=== PATIENT | male | born 1965 | race Caucasian/White ===

== ENCOUNTER 2016-04-05 12:45 | Outpatient (CLI) ==
[2013-04-17 12:47] VITALS: BMI 28.0
[2016-04-05 13:13] LABS: BASOPHILS % (AUTO) 0.9 % (0.0-3.0); EOSINOPHILS # (AUTO) 0.1 K/ul (0.0-0.7); EOSINOPHILS % (AUTO) 3.1 % (0.0-7.0); HEMATOCRIT 37.9 % (42.0-52.0); HEMOGLOBIN 12.7 g/dl (14.0-18.0); IMMATURE GRANULOCYTE % (AUTO) 0.3 % (0.0-5.0); LYMPHOCYTES # (AUTO) 0.9 K/uL (0.60-3.4); LYMPHOCYTES % (AUTO) 27.3 (10.0-50.0); MEAN CORPUSCULAR HEMOGLOBIN 31.9 pg (27.0-31.0); MEAN CORPUSCULAR HGB CONC 33.5 (31.8-35.4); MEAN CORPUSCULAR VOLUME 95.2 fl (80.0-94.0); MONOCYTES # (AUTO) 0.5 K/uL (0.4-2.0); NEUTROPHILS # (AUTO) 1.7 K/ul (2.0-6.9); NEUTROPHILS % (AUTO) 52.4; PLATELET COUNT 116 10^3/uL (140-440); RED BLOOD COUNT 3.98 10^6/ul (4.70-6.10); WHITE BLOOD COUNT 3.19 K/ul (4.2-10.2)
[2016-04-05 13:35] LABS: PROTHROMBIN TIME 12.3 SEC (9.3-11.0)
[2016-04-05 13:44] LABS: ALBUMIN 2.7 g/dL (3.4-5.0); ALBUMIN/GLOBULIN RATIO 0.6; ANION GAP 9.6; BILIRUBIN,TOTAL 1.56 mg/dL (0.00-1.20); BUN/CREATININE RATIO 12.98; CALCIUM 8.5 mg/dL (8.2-10.2); CHOL/HDL RATIO 3.1 (4.5-6.4); CREATININE 0.77 mg/dL (0.60-1.10); POTASSIUM 3.6 mmol/L (3.5-5.1); TOTAL PROTEIN 7.2 g/dL (6.4-8.2)
--- NOTE | 2016-04-05 14:09 | CT ---
EXAM: CT abdomen pelvis without contrast HISTORY: Cirrhosis. Patient with previous cholecystectomy and appendectomy COMPARISON: CT abdomen pelvis 01/01/2014 TECHNIQUE: Serial axial images of the abdomen pelvis were performed from the lung bases through the inferior pelvis without contrast. These were viewed in multiple planes. FINDINGS: The lung bases are clear. There are esophageal varices noted and varices adjacent to the superior gastric body. Evaluation is limited due to lack of contrast. The liver demonstrates a lobular cortical appearance and otherwise not significantly changed. Caudate is enlarged which is unchanged from prior. No foc al hepatic lesion is identified. Spleen size is unchanged. Portal vein is poorly visualized due to lack of contrast. There are varices anterior to the liver. The adrenal glands and kidneys are unremarkable. The pancreas is unremarkable. The stomach is norm al in appearance. Small bowel in the abdomen and pelvis is normal. The colon is unremarkable. There is thickening an d hazy stranding surrounding the urinary bladder which is partially distended. The prostate has bee n treated with metallic seeds. There is no free air or free fluid. The osseous structures are unch anged. IMPRESSION: 1. No significant change in cirrhotic appearance of the liver with esophageal intra-abdominal varic es. 2. Mild thickening and hazy inflammatory stranding surrounding the urinary bladder may represent mi ld inflammation versus infection.
== END 2016-04-05 12:46 | disposition home or self-care (01) ==
LOC: RAD 12:45
PROVIDERS: ATTEND Nurse Practitioner Family
DX: B18.2 Chronic viral hepatitis C (principal)
CPT/HCPCS: 36415; 80053; 80061; 82140; 82150; 83690; 85025; 85610

== ENCOUNTER 2016-04-06 12:43 | Outpatient (CLI) ==
[2013-04-17 12:47] VITALS: BMI 28.0
--- NOTE | 2016-04-06 14:07 | CT ---
EXAM: Noncontrast CT examination of the chest with axial, coronal, and sagittal reformatted images. Comparison: Chest radiographs performed on 04/15/2013. Reason for study: Chronic viral hepatitis C. FINDINGS: No pneumothorax, pleural effusion, or focal consolidation. The lungs are clear without n odularity, septal thickening, or interstitial change. The heart is not enlarged. The partially imaged liver is small with irregular lobular contours and a prominent caudate lobe. T he gallbladder has been removed. Evaluation is somewhat limited secondary to lack of intravenous co ntrast, no intrahepatic lesions are seen. The spleen, adrenal glands, and pancreas are unremarkable . There is extensive vascular collateralization seen throughout the abdominal mesentery. The parti ally imaged bowel and renal collecting system are unremarkable. There is mild degenerative disease of the thoracic spine. IMPRESSION: 1. No abnormal thoracic findings. 2. Irregularly contoured lobular liver with a prominent caudate lobe consistent with longstanding l iver disease.
== END 2016-04-06 12:44 | disposition home or self-care (01) ==
LOC: RAD 12:43
PROVIDERS: ATTEND Nurse Practitioner Family
DX: B18.2 Chronic viral hepatitis C (principal)

== ENCOUNTER 2016-04-07 09:12 | Outpatient (CLI) ==
[2013-04-17 12:47] VITALS: BMI 28.0
--- NOTE | 2016-04-07 10:14 | US ---
EXAM: Bilateral lower extremity venous doppler. HISTORY: Bilateral leg pain and swelling. COMPARISON: None available. TECHNIQUE: Multiple grayscale and color doppler images were obtained. FINDINGS: There is normal flow, compressibility and augmentation of flow within the right and left common femoral, greater saphenous, profunda, femoral, popliteal, posterior tibial, anterior tibial a nd peroneal veins. IMPRESSION: No evidence for right or left lower extremity deep vein thrombosis at the levels examined.
== END 2016-04-07 09:13 | disposition home or self-care (01) ==
LOC: RAD 09:12
PROVIDERS: ATTEND Nurse Practitioner Family
DX: M79.605 Pain in left leg (principal); M79.604 Pain in right leg; B18.2 Chronic viral hepatitis C

== ENCOUNTER 2016-04-08 08:07 | Outpatient (CLI) ==
[2013-04-17 12:47] VITALS: BMI 28.0
--- NOTE | 2016-04-08 08:55 | US ---
EXAM: Ultrasound abdomen limited. HISTORY: Cirrhosis. COMPARISON: CT 04/05/2016. TECHNIQUE: Abdominal, real time with image documentation: limited (eg, single organ, quadrant, fol low-up) FINDINGS: The liver is small, demonstrating a nodular surface contour with a coarsened echotexture pattern. Gallbladder is absent. Common duct not clearly seen. Portal vein appears hepatopedal exte rnal to the liver. Intrahepatic portal vein not imaged. Pancreas is not identified due to bowel gas . IMPRESSION: Cirrhosis.
== END 2016-04-08 08:08 | disposition home or self-care (01) ==
LOC: RAD 08:07
PROVIDERS: ATTEND Nurse Practitioner Family
DX: K74.60 Unspecified cirrhosis of liver (principal)

== ENCOUNTER 2016-06-21 09:52 | Day surgery (SDC) ==
[2013-04-17 12:47] VITALS: BMI 28.0
[2016-06-21] MEDS ORDERED: ALBUTEROL 0.083% NEB NEB STA (11:29)
[2016-06-21] MEDS ORDERED: VERSED ONE (12:53)
[2016-06-21] MEDS ORDERED: DIPRIVAN 20 ML VIAL IVP ONE (12:53)
[2016-06-21] MEDS ORDERED: LIDOCAINE HCL 2% LUER-JET ONE (12:53)
[2016-06-21 14:21] VITALS: BP 117/66; TEMP 98.7
--- NOTE | 2016-06-22 13:56 | OP ---
INDICATIONS FOR PROCEDURE: 51-year-old gentleman presents for endoscopy evaluation. He had a CT scan showing probable esophageal varices. He tells me he had varices banded two to three years ago in [facility]. It was not for bleeding. He denies a history of esophageal bleeding. He is scheduled for endoscopy investigation. MEDICATIONS: SEE ANESTHESIA NOTES. PROCEDURE: ENDOSCOPY. REPORT: The risks, benefits, alternatives and limitations were discussed in detail with the patient. Informed consent was obtained. After adequate sedation was achieved, the video endoscope was introduced in the posterior pharynx and esophagus under direct vision. I easily advanced down to the second portion of the duodenum. I then slowly withdrew. The duodenal mucosa appeared unremarkable as did the duodenal bulb. There is inflammatory changes in the antrum suggestive of possible portal hypertensive gastropathy. The body was unremarkable. The cardia and fundus were unremarkable. There was no evidence of gastric varices. I withdrew the scope back in the esophagus. There are esophageal varices in the lower two-thirds of the esophagus. These initially appeared to be 2+ but I did finally get them to fully flatten out with full insufflation of the esophagus. There is also mild inflammatory changes right at the GE junction with one small break in the mucosa with erythema consistent with 1+ reflux esophagitis. No other abnormalities noted. The patient tolerated the procedure well with stable vital signs and pulse oximetry throughout. IMPRESSION: 1. MILD ANTRITIS SUGGESTIVE OF PORTAL HYPERTENSIVE GASTROPATHY 2. MILD 1+ REFLUX ESOPHAGITIS 3. ZERO TO 1+ ESOPHAGEAL VARICES RECOMMENDATIONS: 1. He is still drinking alcohol and I told him the importance that he must abstain. I have discussed this with the patient and his and that his life expectancy is significantly shortened if he continues to drink alcohol. 2. Will plan to treat the varices with prophylactic Nadolol 40 mg q.a.m. 3. Plan Omeprazole for treatment of esophagitis and help prevent variceal bleeding with reflux esophagitis. 4. Office visit as scheduled for followup in July. At that time, we can discuss treatment of his hepatitis C, reassess how he is doing with his alcohol and also discuss the option of band ligation of the varices vs medical prophylaxis. 5. He will need to continue followup with his primary care providers for assistance in abstaining from alcohol as well as care for his other underlying medical illnesses. CC: DR. STARLA LICEA
== END 2016-06-21 14:05 | disposition home or self-care (01) ==
LOC: SURG 09:52
PROVIDERS: ATTEND Internal Medicine Gastroenterology
DX: R93.3 Abnormal findings on diagnostic imaging of other parts of digestive tract (principal); K29.60 Other gastritis without bleeding; K21.0 Gastro-esophageal reflux disease with esophagitis; I85.00 Esophageal varices without bleeding; Z72.89 Other problems related to lifestyle
CPT/HCPCS: 94640

== ENCOUNTER 2016-06-28 10:22 | Outpatient (CLI) ==
[2013-04-17 12:47] VITALS: BMI 28.0
[2016-06-28 10:35] LABS: BASOPHILS % (AUTO) 0.3 % (0.0-3.0); EOSINOPHILS # (AUTO) 0.2 K/ul (0.0-0.7); EOSINOPHILS % (AUTO) 4.1 % (0.0-7.0); HEMATOCRIT 36.3 % (42.0-52.0); HEMOGLOBIN 12.2 g/dl (14.0-18.0); IMMATURE GRANULOCYTE % (AUTO) 0.3 % (0.0-5.0); LYMPHOCYTES # (AUTO) 0.8 K/uL (0.60-3.4); LYMPHOCYTES % (AUTO) 22.3 (10.0-50.0); MEAN CORPUSCULAR HEMOGLOBIN 31.4 pg (27.0-31.0); MEAN CORPUSCULAR HGB CONC 33.6 (31.8-35.4); MEAN CORPUSCULAR VOLUME 93.3 fl (80.0-94.0); MONOCYTES # (AUTO) 0.7 K/uL (0.4-2.0); MONOCYTES % (AUTO) 20.2 (0-10); NEUTROPHILS # (AUTO) 1.9 K/ul (2.0-6.9); NEUTROPHILS % (AUTO) 52.8; PLATELET COUNT 109 10^3/uL (140-440); RED BLOOD COUNT 3.89 10^6/ul (4.70-6.10); WHITE BLOOD COUNT 3.67 K/ul (4.2-10.2)
[2016-06-28 10:50] LABS: ALBUMIN 2.8 g/dL (3.4-5.0); ALBUMIN/GLOBULIN RATIO 0.67; ANION GAP 11.4; BILIRUBIN,TOTAL 1.37 mg/dL (0.00-1.20); BUN/CREATININE RATIO 18.57; CALCIUM 8.5 mg/dL (8.2-10.2); CHOL/HDL RATIO 2.2 (4.5-6.4); CREATININE 0.7 mg/dL (0.60-1.10); POTASSIUM 4.4 mmol/L (3.5-5.1)
== END 2016-06-28 10:23 | disposition home or self-care (01) ==
LOC: LAB 10:22
PROVIDERS: ATTEND Nurse Practitioner Family
DX: K74.60 Unspecified cirrhosis of liver (principal); B18.2 Chronic viral hepatitis C; M79.604 Pain in right leg
CPT/HCPCS: 36415; 80053; 80061; 82140; 85025

== ENCOUNTER 2016-09-06 10:25 | Outpatient (CLI) ==
[2013-04-17 12:47] VITALS: BMI 28.0
--- NOTE | 2016-09-06 10:44 | DI ---
EXAM: Radiographs, right knee HISTORY: Right knee pain. COMPARISON: None available. TECHNIQUE: Four views. FINDINGS: Bone mineralization is decreased. There is no fracture or dislocation. Mild medial comp artment joint space narrowing and marginal osteophyte formation noted. No focal soft tissue abnorma lity is seen. IMPRESSION: Mild medial compartment osteoarthritis.
--- NOTE | 2016-09-06 10:44 | DI ---
EXAM: Four views of the left knee HISTORY: Left knee pain. COMPARISON: Right knee x-rays 09/06/2016 same day FINDINGS: There is mild medial compartmental narrowing. The lateral compartment is normal. There i s no lytic or blastic lesion. The patella is normal in appearance and position. The soft tissues a re unremarkable. IMPRESSION: Mild medial compartmental narrowing with no acute osseous abnormality.
== END 2016-09-06 10:26 | disposition home or self-care (01) ==
LOC: RAD 10:25
PROVIDERS: ATTEND Nurse Practitioner Family
DX: M25.562 Pain in left knee (principal); M25.561 Pain in right knee

== ENCOUNTER 2016-09-08 15:35 | Emergency (ER) ==
[2016-09-08 15:45] VITALS: BP 127/86; TEMP 97.9; BMI 31.6
[2016-09-08] MEDS ORDERED: ZOFRAN 4 MG/2 ML IVP STA (16:02)
[2016-09-08] MEDS ORDERED: MORPHINE 4 MG/ML SYRINGE IVP STA (16:02)
[2016-09-08 16:08] LABS: HEMATOCRIT 36.8 % (42.0-52.0); HEMOGLOBIN 12.8 g/dl (14.0-18.0); MEAN CORPUSCULAR HEMOGLOBIN 32.1 pg (27.0-31.0); MEAN CORPUSCULAR HGB CONC 34.8 (31.8-35.4); MEAN CORPUSCULAR VOLUME 92.2 fl (80.0-94.0); PLATELET COUNT 118 10^3/uL (140-440); RED BLOOD COUNT 3.99 10^6/ul (4.70-6.10); WHITE BLOOD COUNT 5.06 K/ul (4.2-10.2)
[2016-09-08 16:21] LABS: ANISOCYTOSIS NOT PRESENT (NOT PRESENT)
[2016-09-08 16:32] LABS: ALANINE AMINOTRANSFERASE 33 U/L (12-78); ALBUMIN 2.6 g/dL (3.4-5.0); ALKALINE PHOSPHATASE 120 U/L (50-136); ANION GAP 9.1; ASPARTATE AMINO TRANSFERASE 55 U/L (15-37); BILIRUBIN,TOTAL 1.63 mg/dL (0.00-1.20); BLOOD UREA NITROGEN 10 mg/dL (7-18); BUN/CREATININE RATIO 12.82; CALCIUM 8.6 mg/dL (8.2-10.2); CARBON DIOXIDE 29 mmol/L (21-32); CHLORIDE 105 mmol/L (98-107); CREATINE KINASE 102 U/L; CREATININE 0.78 mg/dL (0.60-1.10); GLUCOSE 103 mg/dL (70-100); POTASSIUM 4.1 mmol/L (3.5-5.1); SODIUM 139 mmol/L (136-145); TOTAL PROTEIN 6.9 g/dL (6.4-8.2)
--- NOTE | 2016-09-08 17:23 | CT ---
Exam: CT thorax without contrast. Clinical indication: Trauma. TECHNIQUE: Axial unenhanced CT images of the thorax were obtained followed by coronal and sagittal reformats. 3-D reconstruction of the thoracic bony structures was performed. Comparison is made to the prior CT dated 04/06/2016. Findings: The visualized portions of the clavicles and scapula are intact. The thoracic vertebral bodies are intact. The ribs are intact. The pulmonary parenchyma is clear and there is no pleural abnormality. There is an enlarged AP window lymph node measuring 1.2 cm in short axis dimension, but this is unch anged from March 2016 and therefore likely reactive. There are no other enlarged axillary, hilar or mediastinal lymph nodes, by size criteria. The mediastinal structures are unremarkable. The liver surface contour has a nodular appearance consistent with cirrhosis. There are extensive para esophageal varices. The remainder of the visualized portions of the upper abdomen are unremarkable. Impression: 1. No evidence of acute thoracic injury. 2. Underlying hepatic cirrhosis. 3. Extensive esophageal varices. 4. Single enlarged AP window lymph node, but this is unchanged from the March 2016 CT and therefo re most likely reactive..
--- NOTE | 2016-09-08 18:05 | ED.PDOC ---
General ED Provider: Dr. XIOMARA BETANCUR Chief Complaint: Chest Wall Injury/Pain Stated Complaint: fall ant chest wall brusing Time Seen by Physician: 15:39 Mode of Arrival: Walk-In Information Source: Patient, Family Exam Limitations: No limitations [facility] Care Provider: [facility] Nursing and Triage Documentation Reviewed and Agree: Yes Trauma/Injury Complaint Exam - Trauma Complaint/Exam Location of Pain or Injury: Reports: Chest. Denies: Head, Scalp, Face, Neck, RUE, LUE, Abdomen, Back, RLE, LLE Mechanism of Injury: Reports: Fall (brief syncope a few seconds 1 dayago) Onset/Duration: 1 day ago Symptoms Are: Still present Initial Severity: Mild Current Severity: Mild Character: Reports: Aching Aggravating: Reports: None Alleviating: Reports: None Associated Signs and Symptoms: Reports: Bruising (ant chest wall) Related History: Reports: Alcohol abuse. Denies: Similar episode Penetrating Injury Risk Factors: Reports: None Nexus Low Risk Criteria: No post-midline CS tender, No evidence of intoxicat., No Altered LOC, No focal neuro deficit, No distracting injuries Immobilization Removed Post Exam: No Glascow Coma Scale (see protocol): 15 Trauma Findings: Absent: [place] eyes, Hemotympanum, Dental tenderness, Dental injury, Dental malocclusion, SubQ Air, Crepitus, Airway obstructed, Trachea displaced, Labored respirations, Weak pulses, Abdominal distention, Pelvic tenderness, Pelvic instability, Perineal blood, Meatal blood, Abnormal rectal tone Review of Systems - Review Of Systems Constitutional: Reports: No symptoms Eyes: Reports: No symptoms Ears, Nose, Mouth, Throat: Reports: No symptoms Respiratory: Reports: No symptoms Cardiac: Reports: Chest pain (brused see photos) GI: Reports: No symptoms : Reports: No symptoms Musculoskeletal: Reports: No symptoms Skin: Reports: No symptoms Neurological: Reports: No symptoms Endocrine: Reports: No symptoms Hematologic/Lymphatic: Reports: No symptoms All Other Systems: Reviewed and Negative Past Medical History - Past Medical History Previously Healthy: No Endocrine: Reports: None Cardiovascular: Reports: None Respiratory: Reports: None Hematological: Reports: Anemia Gastrointestinal: Reports: Other (cirrhosis, hep c varices ) Genitourinary: Reports: None Neuro/Psych: Reports: None Musculoskeletal: Reports: None Cancer: Reports: None - Surgical History General Surgical History: Reports: None - Family History Family History: Reports: None - Social History Smoking Status: Current every day smoker Hx Substance Use: No Alcohol Screening: Occasionally Physical Exam - Physical Exam Appearance: Well-appearing Eyes: SOHAN, EOMI, Conjunctiva clear ENT: Ears normal, Nose normal, Oropharynx normal Respiratory: Airway patent, Breath sounds clear, Breath sounds equal, Respirations nonlabored Cardiovascular: RRR, Pulses normal, No rub, No murmur GI/: Soft, Nontender, No masses, Bowel sounds normal, No Organomegaly Musculoskeletal: Normal strength (chest wall brused see photos) Skin: Warm, Dry, Normal color Neurological: Sensation intact, Motor intact, Reflexes intact, Cranial nerves intact, Alert, Oriented Psychiatric: Affect appropriate, Mood appropriate Interpretation - Radiology Interpretation Radiology Interpretation By: Radiologist Radiology Results: No acute changes Critical Care Note - Critical Care Note Total Time (mins): 0 Course - Course Hematology/Chemistry: 09/08/16 16:04 09/08/16 16:04 Orders, Labs, Meds: Lab Review 09/08/16 16:04 WBC 5.06 RBC 3.99 L Hgb 12.8 L Hct 36.8 L MCV 92.2 MCH 32.1 H MCHC 34.8 RDW Coeff of Sera 14.6 Plt Count 118 L Neutrophils % (Manual) 61.0 Lymphocytes % (Manual) 14.0 Monocytes % (Manual) 15.0 H Eosinophils % (Manual) 2.0 Reactive Lymphocytes 8.0 H Sodium 139 Potassium 4.1 Chloride 105 Carbon Dioxide 29 Anion Gap 9.1 BUN 10 Creatinine 0.78 Estimated GFR (MDRD) 104.00 BUN/Creatinine Ratio 12.82 Glucose 103 H Calcium 8.6 Total Bilirubin 1.63 H AST 55 H ALT 33 Alkaline Phosphatase 120 Total Creatine Kinase 102 Troponin I < 0.0100 Total Protein 6.9 Albumin 2.6 L Globulin 4.3 Albumin/Globulin Ratio 0.60 Orders Category Date Time Status EKG-(ED ONLY) Stat CARDIO 09/08/16 15:58 Completed NPO REMINDER: IMAGING ONCE CARE 09/08/16 16:00 Completed ED IV/MEDIPORT/POWERPORT .ONCE EMERGENCY 09/08/16 16:24 Active CBC W/ AUTO DIFF Stat LAB 09/08/16 16:04 Completed COMPREHENSIVE METABOLIC PANEL Stat LAB 09/08/16 16:04 Completed CREATINE KINASE Stat LAB 09/08/16 16:04 Completed MANUAL DIFFERENTIAL Stat LAB 09/08/16 16:04 Completed TROPONIN I Stat LAB 09/08/16 16:04 Completed 0.9 % Sodium Chloride [Saline Flush] MEDS 09/08/16 16:24 Active 1 syr IVF PRN PRN Morphine Sulfate [Morphine 4 mg/ml Syringe] MEDS 09/08/16 16:02 Discontinued 4 mg IVP ONCE STA Ondansetron HCl/Pf [Zofran 4 mg/2 ml] MEDS 09/08/16 16:02 Discontinued 4 mg IVP ONCE STA CT CHEST W/CONTRAST Stat RADS 09/08/16 16:01 Completed Medications Generic Name Dose Route Start Last Admin Trade Name Freq PRN Reason Stop Dose Admin Sodium Chloride 1 syr 09/08/16 16:24 09/08/16 16:28 Saline Flush IVF 1 syr PRN PRN Administration To flush IV Discontinued Medications Generic Name Dose Route Start Last Admin Trade Name Freq PRN Reason Stop Dose Admin Morphine Sulfate 4 mg 09/08/16 16:02 09/08/16 16:27 Morphine 4 Mg/Ml Syringe IVP 09/08/16 16:03 4 mg ONCE STA Administration Ondansetron HCl 4 mg 09/08/16 16:02 09/08/16 16:27 Zofran 4 Mg/2 Ml IVP 09/08/16 16:03 4 mg ONCE STA Administration Vital Signs: Temp Pulse Resp BP Pulse Ox 09/08/16 15:36 97.9 F 102 H 16 127/86 95 Departure - Departure Time of Disposition: 18:07 Disposition: HOME SELF-CARE Discharge Problem: Chest wall pain Contusion, chest wall Qualifiers: Encounter type: initial encounter Anemia Qualifiers: Anemia type: unspecified type Qualifier Code: (D64.9) Anemia, unspecified Instructions: Contusion in Adults (ED), Anemia (ED), Thrombocytopenia (ED) Condition: Good Pt referred to PMD for follow-up: No Additional Instructions: Please call your Family Physician as soon as possible to schedule a follow-up appointment. Prescriptions: Hydrocodone/Acetaminophen [Waldo 10-325 Tablet] 1 each PO Q8HR #7 tablet Allergies/Adverse Reactions: Allergies codeine Adverse Reaction (Verified 09/08/16 15:43) Home Medications: Ambulatory Orders Tamsulosin HCl [Flomax] 0.4 mg PO BID 07/15/14 Nadolol 40 mg PO d 06/28/16 Hydrocodone/Acetaminophen [Waldo 10-325 Tablet] 1 each PO Q8HR #7 tablet
== END 2016-09-08 18:18 | disposition home or self-care (01) ==
LOC: ED 15:35
DX: S20.219A Contusion of unspecified front wall of thorax, initial encounter (principal); D64.9 Anemia, unspecified; R07.89 Other chest pain; W19.XXXA Unspecified fall, initial encounter; F17.210 Nicotine dependence, cigarettes, uncomplicated
CPT/HCPCS: 36415; 80053; 82550; 84484; 85007; 85025; 93005; 93010; 96374; 96375; 99283

== ENCOUNTER 2016-10-11 11:48 | Outpatient (CLI) ==
--- NOTE | 2016-10-11 12:30 | DI ---
EXAM: Right foot three views HISTORY: Pain in right foot COMPARISON: None FINDINGS: Bones appear demineralized. No acute fracture or dislocation. Old healed fracture second metatarsal with callus formation. Mild osteoarthritis first MTP joint with joint space narrowing. Mild to moderate scattered osteoarthritis of the midfoot. Tiny plantar calcaneal spur. No focal so ft tissue abnormality. IMPERSSION: 1. No fracture or dislocation. 2. Mild to moderate osteoarthritis. 3. Tiny plantar calcaneal spur.
--- NOTE | 2016-10-11 12:30 | DI ---
EXAM: Views of the left foot HISTORY: Pain TECHNIQUE: AP lateral, oblique views of the left foot were obtained. FINDINGS: The bones are osteopenic. No acute fractures are seen. There is probable old healed fra cture of the proximal phalanx of the fifth digit. There are no erosions. The soft tissues are norm al. No lytic or destructive processes are seen. IMPRESSION: No acute fracture dislocation seen within the left foot.
== END 2016-10-11 11:49 | disposition home or self-care (01) ==
LOC: RAD 11:48
PROVIDERS: ATTEND Emergency Medicine
DX: M25.561 Pain in right knee (principal); M79.671 Pain in right foot

== ENCOUNTER 2017-05-08 09:41 | Outpatient (CLI) | payer OTHER | END 2017-05-08 09:42 | disposition home or self-care (01) | LOC: LAB 09:41 | PROVIDERS: ATTEND Nurse Practitioner Family | DX: D51.9 Vitamin B12 deficiency anemia, unspecified (principal); M79.604 Pain in right leg; M79.605 Pain in left leg | CPT/HCPCS: 36415; 80053; 82140; 82150; 83690; 85025 ==

== ENCOUNTER 2017-07-28 10:20 | Outpatient (CLI) | payer OTHER | END 2017-07-28 10:21 | disposition home or self-care (01) | LOC: RHC-LAB 10:20 | PROVIDERS: ATTEND Emergency Medicine | DX: I85.10 Secondary esophageal varices without bleeding (principal); B18.2 Chronic viral hepatitis C | CPT/HCPCS: 36415; 80053 ==

== ENCOUNTER 2017-09-20 10:49 | Inpatient (IN) | payer OTHER ==
[2017-09-20 11:20] VITALS: BMI 36.6
[2017-09-20] MEDS ORDERED: LASIX IVP STA (13:13)
[2017-09-20] MEDS ORDERED: VANCOMYCIN 1 GM in SODIUM CHLORIDE 250 ML IV SCH (13:30)
[2017-09-20] MEDS: SODIUM CHLORIDE 1,000 ML IV SCH (13:54)
[2017-09-20] MEDS: ROCEPHIN 1 GM in SODIUM CHLORIDE 50 ML IV SCH (14:00)
[2017-09-20] MEDS ORDERED: VANCOMYCIN 2 GM in SODIUM CHLORIDE 500 ML IV SCH ×2 (14:30→15:00)
--- NOTE | 2017-09-20 14:56 | US ---
EXAM: Right lower extremity venous Doppler duplex study HISTORY: Concern for DVT with left leg pain and swelling. COMPARISON: Lower extremity Doppler 04/07/2016 TECHNIQUE: Sonographic and Doppler evaluation of the right lower extremity vessels from the common f emoral through the anterior tibial veins were obtained. Augmentation and compression techniques were also performed. Color Doppler flow and spectral analysis is provided. FINDINGS: There is spontaneous Doppler flow seen in the right lower extremity veins from the common femoral through the anterior tibial veins. There is normal compression and augmentation throughout t he lower extremity veins. There is normal color Doppler flow and wave spectral analysis. Sonographic appearance of the soft tissues are unremarkable with mild scattered edema. IMPRESSION: No lower extremity thrombus with mild edema.
--- NOTE | 2017-09-20 15:21 | CT ---
EXAM: CT ABDOMEN AND PELVIS HISTORY: Distension of the abdomen, concern for ascites TECHNIQUE: CT abdomen and pelvis without intravenous contrast. Images were reconstructed using 5 mm section thickness. Reformations were prepared. COMPARISON: 04/05/2016 FINDINGS: Diagnostic limitations exist without including contrast enhanced images. Redemonstration of a shrun melecio liver with peripheral contour irregularity which can be consistent with advanced cirrhosis. Sple en within normal limits. No gallbladder identified. Pancreas is unremarkable. No adrenal mass. Ki dneys and ureters are within normal limits. Mild atherosclerotic disease. There are upper abdominal and para esophageal varices. Prominent periaortic and periportal lymph nodes are again noted. No gastric distension. The appendix has no evidence of acute inflammation. Bowel gas pattern is non obstructive. Urinary bladder is grossly unremarkable. No distinct prostate is seen. There is no as cites. Abundance of intraperitoneal fat deposition. Tiny umbilical hernia with a transverse neck of 1.2 cm likely of no current clinical significance. B ones appear demineralized. Moderate degenerative changes of the lower spine. Lung bases are free of acute infiltrate. No pneumoperitoneum. IMPRESSION: 1. Advanced hepatic cirrhosis with evidence of portal venous hypertension including para-esophageal varices. No ascites is identified. There is a large amount of intraperitoneal fat which may account for abdominal distension. Bowel gas pattern is normal. 2. Prominent nonspecific periaortic and periportal lymph nodes.
[2017-09-20] MEDS: ALDACTONE PO SCH (20:30)
[2017-09-20] MEDS: FLOMAX PO SCH (20:30)
[2017-09-20] MEDS: NEURONTIN PO SCH (20:31)
[2017-09-21] MEDS ORDERED: BUMEX IVP ONE (07:48)
[2017-09-21] MEDS: THIAMINE PO SCH (08:52)
[2017-09-21] MEDS: NEURONTIN PO SCH ×2 (08:52→20:23)
[2017-09-21] MEDS: ALDACTONE PO SCH ×2 (08:52→20:23)
[2017-09-21] MEDS: CORGARD PO SCH (08:52)
[2017-09-21] MEDS: ROCEPHIN 1 GM in SODIUM CHLORIDE 50 ML IV SCH (08:52)
[2017-09-21] MEDS: FLOMAX PO SCH ×2 (08:53→20:23)
[2017-09-21] MEDS ORDERED: NADOLOL 20 MG PO SCH (09:00)
[2017-09-21] MEDS: NON-FORMULARY MEDICATION (Cyanocobalamin (Vitamin B-12) [Vitamin B12] 2,500 MCG) PO SCH (09:08)
[2017-09-21] MEDS: VANCOMYCIN 2 GM in SODIUM CHLORIDE 500 ML IV SCH ×2 (09:26→20:22)
[2017-09-22] MEDS: SODIUM CHLORIDE 1,000 ML IV SCH (05:33)
[2017-09-22] MEDS ORDERED: BUMEX IVP ONE (06:00)
[2017-09-22] MEDS: CORGARD PO SCH (08:17)
[2017-09-22] MEDS: ALDACTONE PO SCH ×2 (08:17→20:26)
[2017-09-22] MEDS: BACTRIM DS 800/160 MG PO SCH ×3 (08:17→20:25)
[2017-09-22] MEDS: FLOMAX PO SCH ×2 (08:17→20:25)
[2017-09-22] MEDS: NEURONTIN PO SCH ×2 (08:17→20:25)
[2017-09-22] MEDS: THIAMINE PO SCH (08:17)
[2017-09-22] MEDS: NON-FORMULARY MEDICATION (Cyanocobalamin (Vitamin B-12) [Vitamin B12] 2,500 MCG) PO SCH (08:18)
--- NOTE | 2017-09-22 14:10 | PN ---
DATE OF SERVICE: 09/22/17 SUBJECTIVE: The patient has almost lost 8 to 10 lbs since admission. Swelling of the bilateral lower extremity is a lot improved. Veins can be seen. REVIEW OF SYSTEMS: CONSTITUTIONAL: No fever, no chills. HEENT: Normal. ENDOCRINE: No weight gain, no weight loss. CVS: No angina symptoms. No CHF symptoms. No palpitations. No atypical chest pain for CAD. No shortness of breath. No PND, no orthopnea. RESPIRATORY: No cough, no hemoptysis. GI: No nausea, no vomiting. No abdominal pain. : No hematuria. No polyuria. MUSCULOSKELETAL: Swelling of the bilateral lower extremity is improved. PSYCHIATRIC: Not anxious. No depression. No suicidal thoughts. No homicidal thoughts. SKIN: Intact. No rash. PHYSICAL EXAMINATION: V/S: BP 124/77, respiratory rate 16, heart rate 87, temperature 98.2, saturation 96. HEENT: Normocephalic, atraumatic. Mucosa dry. NECK: Supple. No JVD, no carotid bruit. No lymphadenopathy. LUNGS: Decreased and clear to auscultation. No rales or rhonchi. HEART: S1, S2 normal. No S3. No murmur, gallop or regurgitation. ABDOMEN: Distention is present. Ascites is present. Fluid shift and dullness is present. Bowel sounds active. No rigidity. No rebound or guarding. No CVA tenderness. EXTREMITIES: Right lower extremity swelling and redness is a lot improved. 1+ leg edema. MUSCULOSKELETAL: No joint swelling. NEUROLOGIC: Awake, alert, oriented times three. No focal deficit. LYMPHATIC: No lymph nodes palpable. SKIN: Intact. LABS: Sodium 137, potassium 4.1, chloride 107, bicarb 25, BUN 11, creatinine 0.67, glucose 101. White count 6.07, hemoglobin 12.4, hematocrit 35.4, platelet count 116. ASSESSMENT: 1. RIGHT LOWER EXTREMITY CELLULITIS 2. NO DVT 3. BILATERAL LOWER EXTREMITY EDEMA 4. HEPATITIS C 5. LIVER CIRRHOSIS 6. HYPERTENSION 7. HISTORY OF PROSTATE CANCER PLAN: 1. Continue Bumex 4 mg IV push 2. Keep leg elevated 3. Will change antibiotic to Bactrim DS twice a day 4. Spironolactone 25 mg p.o. b.i.d. 5. Keep legs elevated TIME SPENT: More than 35 minutes MTDD
--- NOTE | 2017-09-22 14:19 | PN ---
DATE OF SERVICE: 09/21/17 SUBJECTIVE: The patient was admitted from the office with right lower extremity swelling, redness and tenderness. Venous Doppler is negative. CT abdomen and pelvis showed worsening cirrhosis and abdominal ascites. The patient was started on Lasix. Keeping the legs elevated. Antibiotics are given. Pain is still present in the right lower extremity. REVIEW OF SYSTEMS: CONSTITUTIONAL: No fever, no chills. HEENT: Normal. ENDOCRINE: No weight gain, no weight loss. CVS: No angina symptoms. No CHF symptoms. No palpitations. No atypical chest pain for CAD. No shortness of breath. No PND, no orthopnea. RESPIRATORY: No cough, no hemoptysis. GI: No nausea, no vomiting. No abdominal pain. : No hematuria. No polyuria. MUSCULOSKELETAL: Pain right lower extremity. PSYCHIATRIC: Not anxious. No depression. No suicidal thoughts. No homicidal thoughts. SKIN: Intact. No rash. PHYSICAL EXAMINATION: V/S: BP 109/69, respiratory rate 18, heart rate 88, temperature 97.8, saturation 100%. HEENT: Normocephalic, atraumatic. Mucosa dry. Pallor positive. No icterus. NECK: Supple. No JVD, no carotid bruit. No lymphadenopathy. LUNGS: Decreaed and clear to auscultation. No rales or rhonchi. HEART: S1, S2 normal. No S3. No murmur, gallop or regurgitation. ABDOMEN: Distention is present. Fluid shift is present, shifting dullness is present. Soft, nontender. Bowel sounds active. No rigidity. No rebound or guarding. No CVA tenderness. EXTREMITIES: 2 to 3+ edema, right lower extremity redness. Scratch darling are present in the calf area. Redness and tenderness present. No cyanosis or clubbing. MUSCULOSKELETAL: No joint swelling. NEUROLOGIC: Awake, alert, oriented times three. No focal deficit. LYMPHATIC: No lymph nodes palpable. SKIN: Intact. LABS: White count 4.88, hemoglobin 11.7, hematocrit 34.7, platelet count 111. Sodium 137, potassium 4.1, chloride 108, bicarb 25, BUN 12, creatinine 0.69, glucose 99. ASSESSMENT: 1. RIGHT LOWER EXTREMITY CELLULITIS 2. BILATERAL LOWER EXTREMITY DEPENDENT EDEMA 3. HEPATITIS C 4. ASCITES 5. HYPERTENSION 6. DYSLIPIDEMIA PLAN: 1. Continue Vancomycin, Rocephin 2. Keep legs elevated 3. Start the patient on Bumex 1 mg IV push daily TIME SPENT: More than 35 minutes MTDD
[2017-09-23] MEDS: NEURONTIN PO SCH ×2 (09:25→20:25)
[2017-09-23] MEDS: ALDACTONE PO SCH ×2 (09:25→20:25)
[2017-09-23] MEDS: CORGARD PO SCH (09:25)
[2017-09-23] MEDS: THIAMINE PO SCH (09:25)
[2017-09-23] MEDS: BACTRIM DS 800/160 MG PO SCH ×2 (09:25→20:24)
[2017-09-23] MEDS: FLOMAX PO SCH ×2 (09:26→20:25)
[2017-09-23] MEDS: NON-FORMULARY MEDICATION (Cyanocobalamin (Vitamin B-12) [Vitamin B12] 2,500 MCG) PO SCH (09:26)
[2017-09-23] MEDS ORDERED: BUMEX IVP STA (13:23)
[2017-09-24 05:50] VITALS: BP 106/65; TEMP 97.5
[2017-09-24] MEDS: FLOMAX PO SCH (08:26)
[2017-09-24] MEDS: THIAMINE PO SCH (08:26)
[2017-09-24] MEDS: ALDACTONE PO SCH (08:26)
[2017-09-24] MEDS: BACTRIM DS 800/160 MG PO SCH (08:26)
[2017-09-24] MEDS: CORGARD PO SCH (08:26)
[2017-09-24] MEDS: NON-FORMULARY MEDICATION (Cyanocobalamin (Vitamin B-12) [Vitamin B12] 2,500 MCG) PO SCH (08:27)
[2017-09-24] MEDS: NEURONTIN PO SCH (08:27)
--- NOTE | 2017-09-25 11:09 | PN ---
DATE OF SERVICE: 09/23/17 SUBJECTIVE: The patient is admitted with right lower extremity cellulitis and leg edema. DVT negative. The patient has lost 12 lbs so far. With the Bumex he is able to urinate good. BUN and creatinine are stable now. He complains that he feels short of breath with exertion otherwise normal. REVIEW OF SYSTEMS: CONSTITUTIONAL: No fever, no chills. HEENT: Normal. ENDOCRINE: No weight gain, no weight loss. CVS: No angina symptoms. No CHF symptoms. No palpitations. No atypical chest pain for CAD. Shortness of breath with exertion. No PND, no orthopnea. RESPIRATORY: No cough, no hemoptysis. GI: No nausea, no vomiting. No abdominal pain. : No hematuria. No polyuria. MUSCULOSKELETAL: No joint swelling. PSYCHIATRIC: Not anxious. No depression. No suicidal thoughts. No homicidal thoughts. SKIN: Intact. No rash. PHYSICAL EXAMINATION: V/S: BP 127/84, respiratory rate 20, heart rate 73, temperature 97.7, saturation 94. HEENT: Normocephalic, atraumatic. Mucosa dry. Pallor positive. No icterus. NECK: Supple. No JVD, no carotid bruit. No lymphadenopathy. LUNGS: Clear to auscultation. No rales or rhonchi. HEART: S1, S2 normal. No S3. No murmur, gallop or regurgitation. ABDOMEN: Distended abdomen with fluid shifting and shifting dullness is present. Bowel sounds active. No rigidity. No rebound or guarding. No CVA tenderness. EXTREMITIES: 2+ leg edema with discoloration of the lower extremities from the chronic dermatitis changes. No cyanosis or clubbing. MUSCULOSKELETAL: No joint swelling. NEUROLOGIC: Awake, alert, oriented times three. No focal deficit. LYMPHATIC: No lymph nodes palpable. SKIN: Intact. LABS: White count 5.0, hemoglobin 12.2, hematocrit 37.3, platelet count 119. Sodium 138, potassium 4.0, chloride 108, bicarb 24, BUN 15, creatinine 0.81, glucose 170. Total bilirubin 1.5, AST 55. ASSESSMENT: 1. RIGHT LOWER EXTREMITY CELLULITIS, WHICH IS BETTER 2. ASCITES 3. WORSENING LEG EDEMA 4. HEPATITIS C 5. ANEMIA 6. HISTORY OF ESOPHAGEAL VARICES 7. LIVER CIRRHOSIS, NO ENCEPHALOPATHY PLAN: 1. Continue Rocephin 2. Vancomycin 3. Will give one more Bumex today 4. Daily I & O's TIME SPENT: More than 35 minutes MTDD
--- NOTE | 2017-09-25 14:49 | DS ---
DATE OF SERVICE: 09/24/17 FINAL DIAGNOSIS: 1. RIGHT LOWER EXTREMITY CELLULITIS WHICH IS BETTER 2. RIGHT LOWER EXTREMITY PAIN, NO DVT 3. ASCITES 4. HEPATIC CIRRHOSIS WITH HEPATITIS C POSITIVE, CHRONIC 5. BILATERAL WORSENING LOWER EXTREMITY EDEMA 6. ESOPHAGEAL VARICES 7. ANEMIA 8. HYPOALBUMINEMIA DISCHARGE INSTRUCTIONS: 1. Discharge the patient home. 2. Followup appointment on with Dr. Cerda at the clinic; call for appointment [phone]. 3. Please keep the legs elevated. MEDICATIONS AT DISCHARGE: Thiamine Neurontin Nadolol Spironolactone Flomax NEW PRESCRIPTIONS: Keflex 500 mg p.o. b.i.d. times 5 days Bumex 1 mg p.o. daily DIET INSTRUCTIONS: High protein diet ACTIVITY: As much as tolerated DISEASE SPECIFIC EDUCATION: Liver cirrhosis, risk of liver failure and encephalopathy discussed, verbalized understanding. HOSPITAL COURSE: This is a 52-year-old male with a history of cirrhosis and hepatitis C came to the office worsening right lower extremity swelling, redness and tenderness. He was tender to touch, warm to touch, admitted with cellulitis, rule out DVT with venous scan. The patient gained 20 to 30 lbs in 2 months. He was started on Bumex. With the given Bumex, the patient started to lose weight. CT of the abdomen and pelvis did show advanced hepatic cirrhosis, portal venous hypertension. No ascites identified. A large amount of retroperitoneal fat which may account for the abdominal distention. Bowel gas pattern is normal. Prominent nonspecific periaortic and perilymphatic lymph nodes. He was started on Rocephin and Vancomycin. With the given treatment, redness and swelling in the right lower extremity was getting better. The patient came with weight of 301 and now is 288. Up and about walking, did not have any complications during the hospital stay. He was able to tolerate Bumex fine. Kidney function did not change. As the patient was doing well, leg swelling is better, up and about walking, less short of breath, the patient was discharged home. TIME SPENT: MORE THAN 65 MINUTES MTDD
== END 2017-09-24 08:55 | disposition home or self-care (01) | DRG 556 ==
LOC: MEDSURG B 10:49
PROVIDERS: ADMIT Emergency Medicine; ATTEND Emergency Medicine
DX: M79.661 Pain in right lower leg (principal); R18.8 Other ascites; I85.00 Esophageal varices without bleeding; R60.0 Localized edema; K74.69 Other cirrhosis of liver; B18.2 Chronic viral hepatitis C; R06.02 Shortness of breath; I10 Essential (primary) hypertension; D64.9 Anemia, unspecified; E53.8 Deficiency of other specified B group vitamins; E88.09 Other disorders of plasma-protein metabolism, not elsewhere classified; G62.9 Polyneuropathy, unspecified; Z85.46 Personal history of malignant neoplasm of prostate
CPT/HCPCS: 36415; 80053; 80202; 81001; 82140; 82550; 84484; 85025; 85610; 93005; 93010

== ENCOUNTER 2017-11-05 06:19 | Emergency (ER) | payer OTHER ==
[2017-11-05 06:28] VITALS: BP 99/65; TEMP 98.4; BMI 37.0
[2017-11-05] MEDS ORDERED: ZOSYN 3.375 GM 3.375 GM in SODIUM CHLORIDE 50 ML IV STA (07:06)
--- NOTE | 2017-11-05 07:53 | CT ---
EXAM: CT of the head without contrast History: Headache. Comparison: Head CT 04/17/2012 Technique: Multiplanar CT images through the head were obtained without the administration of IV con trast Findings: The visualized paranasal sinuses and mastoid air cells are clear in general. No acute tj varial abnormalities. Artificial right globe again identified. Intracranially the ventricular and cisternal spaces are normal in size, shape and configuration for a patient of this age. No dominant mass or midline shift. No hydrocephalous. No acute intracranial hemorrhage or abnormal extraaxial fluid collections. Impression: No acute intracranial process.
--- NOTE | 2017-11-05 08:01 | CT ---
EXAM: CT of the chest without contrast History: Cough. Comparison: Chest CT 09/08/2016, CT abdomen pelvis 08/05/2017 Technique: Multiplanar CT images through the thorax were obtained without the administration of IV c ontrast. Findings: Heart size is normal. Trace pericardial fluid. No thoracic aortic aneurysm. No axillary lymphadenopathy. There are enlarged mediastinal lymph nodes measuring up to 1.8 cm and overall incre ase in size compared to the prior study. Evaluation for hilar nodes is limited due to lack of contra st administration. Scattered areas of subsegmental atelectasis. No consolidated pneumonia. No pneu mothorax. No suspicious lung masses or lung nodules. For details in the upper abdomen, please see dedicated CT abdomen pelvis done on the same day. There is wall thickening of the distal esophagus and esophageal varices. No acute osseous abnormalities. Degenerative changes of the spine. Impression: 1. No evidence for pneumonia. 2. Mediastinal lymphadenopathy has increased compared to the prior study. 3. Wall thickening of the distal esophagus and esophageal varices.
--- NOTE | 2017-11-05 08:06 | CT ---
EXAM: CT of the abdomen pelvis without contrast History: Cirrhosis, abdominal pain. Comparison: CT abdomen pelvis 09/20/2017, chest CT 11/05/2017 Technique: Multiplanar CT images through the abdomen pelvis were obtained without the administration of IV contrast. Findings: Details in the lower lungs, please see dedicated chest CT done on the same day. Wall thickening of the distal esophagus with large paraesophageal varices.. The wall thickening of th e esophagus has worsened compared to the prior study. Advanced cirrhosis with nodular contour of the liver. Evaluation for liver lesions is limited due to the lack of IV contrast. Cholecystectomy cli ps. There is recanalization of the periumbilical vein. The appendix is normal. No evidence for bow el obstruction. No peripancreatic inflammation. Adrenal glands are unremarkable. No renal stones a nd no hydronephrosis. Prominent upper abdominal lymph nodes again seen which probably reactive. The re is mesenteric edema and trace fluid in the left pericolic gutter. No focal bladder wall thickenin g. Prostate is not enlarged. No perirectal inflammation. No free air. Spleen is not enlarged. No acute osseous abnormalities. Impression: 1. Cirrhosis with portal venous hypertension including large varices. 2. The wall thickening of the esophagus has worsened compared to the prior study. 3. Mesenteric edema and trace fluid in the left pericolic gutter.
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
== END 2017-11-05 11:45 | disposition short-term general hospital (02) ==
LOC: ED 06:19
DX: R51 Headache (principal); K72.00 Acute and subacute hepatic failure without coma; D64.9 Anemia, unspecified; R05 Cough; Z98.890 Other specified postprocedural states; F17.210 Nicotine dependence, cigarettes, uncomplicated
CPT/HCPCS: 36415; 80053; 81001; 82140; 82803; 83605; 84145; 85008; 85025; 85610; 85651; 87040; 87086; 93005; 93010; 96365; 99285